=== PATIENT | female | born 1960 | race Asian ===

== ENCOUNTER 2022-02-08 11:07 | Outpatient (REF) | payer MEDICARE, SELFPAY ==
[2022-02-08 12:51] LABS: Valproate 78.3 mcg/mL (50.0-100.0)
== END 2022-02-08 11:08 | disposition home or self-care (01) ==
LOC: HO.LAB 11:07
PROVIDERS: PCP Internal Medicine; Visit Provider Psychiatry & Neurology Neurology
DX: R25.1 Tremor, unspecified (principal); Z79.899 Other long term (current) drug therapy
CPT/HCPCS: 36415; 80164